=== PATIENT | male | born 1965 | race African-American/Black ===

== ENCOUNTER 2020-01-26 01:25 | Inpatient (IN) | payer OTHER ==
[2020-01-26] VITALS (96 sets, daily range): BP systolic 135–197; BP diastolic 69–142
[~2020-01-26] VITALS: Ht 175.3 cm; Wt 79.9 kg
[2020-01-26 02:20] LABS: ABSOLUTE NEUTROPHILS 7.2 thou/uL (1.4-8.2); BASOPHILS 0.9 % (0.0-2.0); EOSINOPHILS 2.1 % (0.0-3.0); HEMATOCRIT 39.1 % (42.0-52.0); HEMOGLOBIN 13.1 gm/dL (14.0-18.0); LYMPHOCYTES 14.8 % (24.0-44.0); MCH 26.7 pg (26.0-34.0); MCHC 33.4 g/dL (28.0-37.0); MONOCYTES 3.9 % (1.0-8.0); PLATELET COUNT 232 thou/uL (150-400); POLYS 78.3 % (36.0-66.0); RBC 4.89 mil/uL (4.50-6.00); RDW 15.1 % (10.5-14.5); WBC 9.2 thou/uL (4.0-11.0)
[2020-01-26 02:35] LABS: CALCIUM 8.4 mg/dL (8.5-10.1); CREATININE 1.9 mg/dL (0.7-1.3); POTASSIUM 3.8 mmol/L (3.5-5.1)
[2020-01-26 02:36] LABS: APTT 22.4 Seconds (24.5-32.8); PROTIME 10.6 Seconds (9.3-11.4)
[2020-01-26 02:41] LABS: ALBUMIN 2.7 g/dL (3.4-5.0); TOTAL BILIRUBIN 0.6 mg/dL (0.2-1.0); TOTAL PROTEIN 6.6 g/dL (6.4-8.2)
--- NOTE | 2020-01-26 03:04 | NUR ---
TALKED WITH MR KANG'S SISTER AND NIECE
--- NOTE | 2020-01-26 07:37 | EKG ---
[facility] [place] [address] ELECTROCARDIOGRAM REPORT Name: JULIO WATSON Room #: REG [facility]..#: [id number] Admission: 01/26/20 Attend Phys: Discharge: Date of : 65 Report #: [id number] THIS REPORT FOR: cc: NO FAMILY PHYSICIAN or PCP NO FAMILY PHYSICIAN or PCP Bhargav Mccormick MD [facility] ~ THIS REPORT FOR: //name// [facility] ED Test Date: 2020-01-26 Test Time: 02:22:54 Pat Name: JULIO WATSON Department: Room: Gender: M Psychologist Educational: MELODY : 1965 Requested By: Ramiro Dang Order Number: [id number] MD: Bhargav Mccormick Measurements Intervals Raymond Rate: 83 P: 76 UT: 171 QRS: 44 QRSD: 122 T: 185 QT: 419 QTc: 493 Interpretive Statements Sinus rhythm Nonspecific intraventricular conduction delay Abnrm T, consider ischemia, anterolateral lds No previous ECG available for comparison Electronically Signed On 01-26-2020 7:36:54 CDT by Bhargav Mccormick [email or web address] <ELECTRONICALLY SIGNED> By: Bhargav Mccormick MD, [facility] 01/26/20 0736 1 1 Bhargav Mccormick MD, FACC /EPI
--- NOTE | 2020-01-26 13:06 | NUR ---
Fisher Spear to see patient. pt laying in bed #244. pt having slurred speech and delay in getting words out however a&ox3. reports extreme weakness in left upper extremity however able to lift off bed. My understanding was pt was flaccid in the left upper ext while in ER yesterday. Pt able to lift bilat lower extremities without any difficulty and expressed his want to stand up. 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 I explained a few of the risk factors which he has for stroke and he verbalized understanding. I also explained the importance of rehab and how much an improvement they can make on his prognosis. pt verbalized understanding to that as well. Prem delgado left with patient as well as my contanct info. I will continue to follow pt.
[2020-01-26 13:30] LABS: URINE BILIRUBIN NEGATIVE (Negative); URINE BLOOD TRACE (Negative); URINE CLARITY CLEAR; URINE COLOR YELLOW; URINE GLUCOSE-RANDOM* 3+ (Negative); URINE KETONES TRACE (Negative); URINE LEUKOCYTES-REFLEX NEGATIVE (Negative); URINE NITRITE-REFLEX NEGATIVE (Negative); URINE PROTEIN (DIPSTICK) 2+ (Negative); URINE SPECIFIC GRAVITY 1.015 (1.005-1.035); URINE UROBILINOGEN 0.2 E.U./dl (0.2-1.0)
[2020-01-26 13:55] LABS: BACTERIA-REFLEX None Seen /HPF (None Seen); SQUAMOUS None Seen /LPF (0-3); URINE RBC 0-2 Rare /HPF (0-2); URINE WBC-REFLEX 0-5 Rare /HPF (0-5)
[2020-01-26 13:56] LABS: CASTS None Seen /LPF (None Seen); CRYSTALS None Seen /LPF (None Seen)
--- NOTE | 2020-01-26 15:43 | 2DMMODE ---
[facility] [place] [address] [address] 2 D/M-MODE ECHOCARDIOGRAM Name: JULIO WATSON Room #: 244-P ADM IN M.R.#: [id number] Admission: 01/26/20 Attend Phys: Camron Turner MD Discharge: Date of : 65 Report #: [id number] THIS REPORT FOR: cc: NO FAMILY PHYSICIAN or PCP NO FAMILY PHYSICIAN or PCP Nicholas Barker MD ~ APPROVED REPORT Study performed: 01/26/2020 14:26:41 EXAM: Comprehensive 2D, Doppler, and color-flow Echocardiogram Patient Location: ICU Room #: 244 BSA: 2.02 HR: 71 bpm BP: 149/81 mmHg Rhythm: NSR Other Information Study Quality: Good Indications CVA/TIA Hypertension/HDD Echo Enhancing Agent Indication: Rule out Shunt Agent(s) / Amount(s) Used: Agitated Saline 7 cc 2D Dimensions RVDd: 44.90 mm IVSd: 12.00 (7-11mm) LVDd: 45.61 mm PWd: 12.11 (7-11mm) Ascending Ao: 26.25 (22-36mm) LVDs: 36.80 (25-40mm) Aortic Root: 28.87 mm IVC: 20.00 mm Volumes Left Atrial Volume (Systole) Single Plane 4CH: 73.97 mL Single Plane 2CH: 77.41 mL LA ESV Index: 43.00 mL/m2 Aortic Valve [facility] [address] [place] [address] 2 D/M-MODE ECHOCARDIOGRAM Name: JULIO WATSON Room #: 244-P ADM IN .Ranjan.#: [id number] Admission: 01/26/20 Attend Phys: Camron Turner MD Discharge: Date of : 65 Report #: [id number] AoV Peak Shorty.: 1.51 m/s AO Peak Gr.: 9.15 mmHg LVOT Max P.00 mmHg LVOT Max V: 1.00 m/s Mitral Valve E/A Ratio: 2.4 MV Decel. Time: 170.87 ms MV E Max Shorty.: 1.07 m/s MV A Shorty.: 0.45 m/s MV PHT: 49.55 ms IVRT: 106.11 ms Pulmonary Valve PV Peak Shorty.: 0.88 m/s PV Peak Gr.: 3.12 mmHg Pulmonary Vein P Vein S: 0.41 m/s P Vein A: 0.16 m/s P Vein D: 0.48 m/s P Vein A Dur.: 143.0 msec P Vein S/D Ratio: 0.85 Tricuspid Valve TR Peak Shorty.: 3.30 m/s TR Peak Gr.: 43.50 mmHg PA Pressure: 54.00 mmHg Left Ventricle The left ventricle is normal size. There is normal LV segmental wall motion. Mild concentric left ventricular hypertrophy. The left ventricular systolic function is low-normal. LVEF is 50-55%. Moderate diastolic dysfunction is present (pseudonormal filling). Right Ventricle The right ventricle is normal size. The right ventricular systolic function is normal. Atria Left atrium is dilated. Injection of bubbles documented no interatrial shunt. Right atrium is dilated. Aortic Valve The aortic valve is normal in structure. No aortic regurgitation is present. There is no aortic valvular stenosis. Mitral Valve The mitral valve is normal in structure. Mild mitral regurgitation. No evidence of mitral valve stenosis. [facility] [address] [place] [address] 2 D/M-MODE ECHOCARDIOGRAM Name: JULIO WATSON Room #: 244-P [facility] IN M.R.#: [id number] Admission: 01/26/20 Attend Phys: Camron Turner MD Discharge: Date of : 65 Report #: [id number] Tricuspid Valve The tricuspid valve is normal in structure. There is mild tricuspid regurgitation. Estimated PAP 46 mmHg. Pulmonic Valve The pulmonary valve is normal in structure. There is no pulmonic valvular regurgitation. Great Vessels The aortic root is normal in size. IVC is dilated and collapses <50% with inspiration. Pericardium Trace pericardial effusion. <Conclusion> The left ventricle is normal size. Mild concentric left ventricular hypertrophy. The left ventricular systolic function is low-normal. The right ventricle is normal size. Left atrium is dilated. Injection of bubbles documented no interatrial shunt. The aortic valve is normal in structure. Mild mitral regurgitation. There is mild tricuspid regurgitation. Estimated PAP 46 mmHg. <ELECTRONICALLY SIGNED> By: Nicholas Barker MD 01/26/201541 41 41 Nicholas Barker MD /INF
--- NOTE | 2020-01-26 16:28 | NUR ---
call placed to Fely at Dr. Ramsey's office to notify him the MRI scanner is down today. therefore unable to perform MRI today.
[2020-01-26 16:57] LABS: CHOLESTEROL 189 mg/dL (<200); HDL CHOLESTEROL 68 mg/dL (>40); LDL CHOLESTEROL 106 mg/dL (<100); TC:HDL 2.8 Ratio (Not establshd); TRIGLYCERIDE 76 mg/dL (<150); VLDL 15 mg/dL (<40)
[2020-01-26 16:59] LABS: TROPONIN-I 0.96 ng/mL (<0.06)
--- NOTE | 2020-01-26 17:24 | HC ---
[facility] [place] [address] CONSULTATION Name: JULIO WATSON Room #: 244-P ADM IN Ros[place].#: [id number] Admission: 01/26/20 Attend Phys: Camron Turner MD Discharge: Date of : 65 Report #: [id number] THIS REPORT FOR: cc: NO FAMILY PHYSICIAN or PCP NO FAMILY PHYSICIAN or PCP Sky Ramsey MD ~ DATE OF SERVICE: 01/26/2020 HISTORY OF PRESENT ILLNESS: This is a 54-year-old male patient who was evaluated by me for stroke. I talked to a nurse practitioner who is admitting this patient, Dona, and subsequently I talked to Dr. Turner, the hospitalist. I took the history from the patient himself and the patient's family provided some of the history. The records from Emergency Room physician were reviewed. I also talked to Dr. Foley, the neurologist, corrosion control fitter last night. This patient had presented to Emergency Room for stroke-like symptoms. As I understand, the patient has weakness and numbness on the left side including the face. He was within the timeframe for TPA and Emergency Room physician, Dr. Dang and Dr. Foley, gave him TPA and looks like he tolerated it pretty well. The patient is also left handed and his speech was also affected. He has not shown any significant improvement so far, but he has not shown any significant deterioration either. The patient is still in the Emergency Room. He never had any stroke-like symptoms before. He does not have any heart problems. He says he does not smoke or drink any alcohol. He is a diabetic and hypertensive. REVIEW OF SYSTEMS: Positive for diabetes and hypertension. It looks like Emergency Room physician did the exclusion criteria and after that, he was given TPA. They also did a CT angiogram of the head and neck to make sure there is no indication for thrombectomy and a CT angiogram of the head and neck was normal. This morning, consult was passed on to me and I saw this patient just now and the history is summarized as above. PAST MEDICAL HISTORY: Negative for stroke, any metal in the body which would be contraindication for MRI. He does not have any heart issues either according to him. FAMILY HISTORY: Positive for stroke. SOCIAL HISTORY: He says he drinks alcohol on the weekend, but does not smoke or do any drugs. PHYSICAL EXAMINATION: Indicate he is alert. He is responsive. He can follow simple command. He does not feel his speech is anywhere close to normal, although he can follow simple commands. He is able to talk. His cranial nerve examination was attempted. He has a left facial weakness, but I cannot tell [facility] [address] [place] [address] CONSULTATION Name: JULIO WATSON Room #: 244-P ADM IN M.R.#: [id number] Admission: 01/26/20 Attend Phys: Camron Turner MD Discharge: Date of : 65 Report #: [id number] about hemianopsia. I think we need to do the exam again. He has no strength in the left upper extremity, but left lower extremity he can move. He can move against gravity and to some extent against resistance, but he is weak there also. He says that he cannot feel things on the left upper extremity. Left lower extremity, he thinks his sensation is altered. He still was able to do the position sense on the left side, but it took him longer. His right plantar is withdrawal. Left plantar is mute. Cardiac examination does not appear to be showing any fibrillation, no respiratory difficulty was noticed. His blood pressure, the last one was 170/98, respiration is 19, pulse is 90. LABORATORY DATA: Indicate normal white count, platelet count is 232. PTT is 22.4. His GFR was only 37. IMPRESSION AND PLAN: Clinically, the patient appeared to have stroke. It is probably a small vessel, subcortical stroke, but we need to see if it is in the subcortical or brainstem area or any other location. He received the TPA in Emergency Room and does not look like that has caused any detrimental effect on him. There are multiple concerns in this patient, which need to be addressed and most of them are non-neurological at the moment. They are summarized as follows: 1. His blood sugar is running very high. That needs to be controlled to prevent the anaerobic metabolism and the recommendation is controlling the blood sugar tightly. 2. Blood pressure also needs to be monitored and controlled tightly because of the TPA. It should be kept less than 180 systolic by the use of either labetalol or Cardene depending upon art studio teacher's choice. We should not let the blood pressure drop too low, but something like 160 systolic will be reasonable. That should be the goal with some fluctuation. 3. This patient's GFR was only 37. He did get contrast in the Emergency Room for the CT angiogram. That needs to be addressed and monitored either by art studio teacher or by Nephrology. If fluids are given, his blood pressure can even go higher and he may need some more medications to control the blood pressure. 3. He does have vascular risk factor, but he is still young. He will need workup to determine some other etiology for the patient's stroke. We will go ahead and order that starting with an echocardiogram, but subsequently doing some more testing which I will order once the patient stabilizes. 4. This patient will need extensive PT, OT and speech therapy because his dominant side is affected. 5. His troponin is high, although coming down. Again, I will defer to hospitalist if anything further needs to be done in that regard. Neurologically, I will look at the MRI once it is done. I will follow up again later on today after the MRI. There is a post-TPA order should be followed, [facility] [address] [place] [address] CONSULTATION Name: JULIO WATSON Room #: 244-P ADM IN .R.#: [id number] Admission: 01/26/20 Attend Phys: Camron Turner MD Discharge: Date of : 65 Report #: [id number] especially his diabetes and hypertension need to be controlled with the parameter as summarized above. I discussed that with the family as well as Dr. Turner, the hospitalist, as well as a nurse practitioner, Dona, from hospitalist. Thank you very much for this referral. <ELECTRONICALLY SIGNED> By: Sky Ramsey MD 01/26/20 1724 [id number] [id number] Sky Ramsey MD /nt
--- NOTE | 2020-01-26 18:28 | NUR ---
>>>1030 PT ARRIVED ON FLOOR WITH ED NURSE. IS ALERT AND ORIENTED. DENIES PAIN. SLURRED SPEECH NOTED ON COMMUNICATION. ASSESSMENTS DONE DOCUMENTED. FAMILY NOTIFIED ABOUT PT TRANSFER TO ROOM. ON CONTINUOS CARDINE DRIP FOR BP MAINTENANCE. BLOOD SUGAR AT 327, INSULIN ADMINISTERED DOCUMENTED. WILL CONTINUE TO MONITOR. >>>1300 SPEECH THERAPY PRESENT, SWALLOW TEST DONE, PT FAILED. STARTED ON MECHANICAL SOFT DIET WITH THIN LIQUIDS. WILL CONTINUE TO MONITOR. >>>1715 DR LAVELLE SAVAGE ON PT. ORDER TO TITRATE CARDENE DRIP OFF AND KEEP BP BETWEEN 150-180. WILL CONTINUE TO MONITOR.
[2020-01-27] VITALS (45 sets, daily range): BP systolic 124–183; BP diastolic 59–115
--- NOTE | 2020-01-27 04:51 | NUR ---
ASSUMED CARE OF PATIENT AT 1900. VSS, AFEBRILE. NIHSS DONE Q4 PER CHARTING. MAKING IMPROVEMENTS WITH LEFT SIDE, SPEECH STILL SLURRED AT TIMES. HEADACHE AT 0200. RELIEVED WITH TYLENOL. BP WITHIN PARAMETERS SET BY NEUROLOGY. PROGRESSING TOWARDS POC.
[2020-01-27 05:54] LABS: ABSOLUTE NEUTROPHILS 6.9 thou/uL (1.4-8.2); BASOPHILS 0.3 % (0.0-2.0); EOSINOPHILS 2.1 % (0.0-3.0); HEMATOCRIT 39.4 % (42.0-52.0); HEMOGLOBIN 13.1 gm/dL (14.0-18.0); LYMPHOCYTES 18.2 % (24.0-44.0); MCH 26.6 pg (26.0-34.0); MCHC 33.3 g/dL (28.0-37.0); MONOCYTES 5.6 % (1.0-8.0); PLATELET COUNT 233 thou/uL (150-400); POLYS 73.8 % (36.0-66.0); RBC 4.92 mil/uL (4.50-6.00); RDW 15.2 % (10.5-14.5); WBC 9.4 thou/uL (4.0-11.0)
[2020-01-27 06:06] LABS: GLYCOHEMOGLOBIN (HGB A1C) 13.4 % (4.8-5.6)
[2020-01-27 06:08] LABS: CALCIUM 8.3 mg/dL (8.5-10.1); MAGNESIUM 1.5 mg/dL (1.8-2.4); POTASSIUM 3.4 mmol/L (3.5-5.1)
--- NOTE | 2020-01-27 09:30 | NUR ---
cm returned call to sister louie rivera [phone], she stated she was visiting [place] and wanted get him help with social sec disability depending on his needs of care. visited with costa and sister on phone call. they reported he lives in house 10 steps to enter, 13 to basement. he independent prior to hospital. he helped his roommate care for her self and medication. drive vehicle. 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 possible can stay with me depending on what needs he will have from this. pcp at [facility] with rashaun sharp. , have someone call [place]a but do not leave message or can call me about disability and leave a message per costa and louie. referral sent to med assist.
[2020-01-27 16:59] LABS: MAGNESIUM 1.7 mg/dL (1.8-2.4); POTASSIUM 3.9 mmol/L (3.5-5.1)
[2020-01-27 18:41] LABS: APTT 25.4 Seconds (24.5-32.8); INR 1.1; PROTIME 11.2 Seconds (9.3-11.4)
[2020-01-28] VITALS (91 sets, daily range): BP systolic 116–165; BP diastolic 64–94
--- NOTE | 2020-01-28 02:57 | NUR ---
PT AWAKE, ALERT AND ORIENTED. DENIES HEADACHE/PAIN.MOVING AND LIFTING BLE AND RIGHT HAND WITH NO DRIFT.LEFT HAND WEAK, PT ABLE TO MAKE SLIGHT MOVEMENT OF THE WRIST.EATING AND DRINKING THIN LIQUIDS WITH NO COUGHING NOTED BUT SOME ISSUES WITH COORDINATION AND REQUIRES ASSISTNCE WITH SETUP.TITRATING CARDENE GTT SLOWLY TO KEEP SBP WITHIN SET PARAMETERS BY NEURO. DR. NAJERA HERE AT 0200 TO SEE PT. UPDATED ON PT CONDITION. NEW ORDERS TO CONSULT NEUROSURGEON AND REPEAT CT HEAD AT 0800.
[2020-01-28 09:51] LABS: HEMATOCRIT 42.4 % (42.0-52.0); HEMOGLOBIN 13.9 gm/dL (14.0-18.0); MCH 26.1 pg (26.0-34.0); MCHC 32.7 g/dL (28.0-37.0); MCV 79.9 fL (80.0-100.0); RBC 5.3 mil/uL (4.50-6.00); RDW 15.5 % (10.5-14.5)
[2020-01-28 10:06] LABS: CALCIUM 8.6 mg/dL (8.5-10.1); CREATININE 1.3 mg/dL (0.7-1.3); MAGNESIUM 1.6 mg/dL (1.8-2.4); POTASSIUM 3.4 mmol/L (3.5-5.1)
--- NOTE | 2020-01-28 11:55 | NUR ---
cm notified by cm team that hospitalist is needing to speak with neurosurgery rt pt having 2nd bleed. spoke with [facility], faxed over face sheet, costa is pat. have radiology cloud over imagining to [facility]. spoke with [facility] transfer nurse, will reach out to carmen to discuss costa. will cont following as needed for dc needs.
[2020-01-29] VITALS (69 sets, daily range): BP systolic 112–149; BP diastolic 56–87
[2020-01-29 02:26] LABS: HEMOGLOBIN 12.8 gm/dL (14.0-18.0); MCH 26.3 pg (26.0-34.0); MCHC 32.9 g/dL (28.0-37.0); RBC 4.87 mil/uL (4.50-6.00); RDW 15.2 % (10.5-14.5); WBC 9.9 thou/uL (4.0-11.0)
[2020-01-29 02:35] LABS: CALCIUM 8.4 mg/dL (8.5-10.1); CREATININE 1.3 mg/dL (0.7-1.3); MAGNESIUM 1.7 mg/dL (1.8-2.4); POTASSIUM 3.5 mmol/L (3.5-5.1)
--- NOTE | 2020-01-29 03:50 | NUR ---
This RN to bedside at 1900. Q4 NIH tests and Q2 neuro checks. Patient consistently scoring a 4 on this NIH scale. Partial on facial palsy, partial on sensory and motor left arm scoring drift. Patient is alart and oriented, appropriate mood and affect. Patient remains on a cardene gtt and is succesfully voiding and drinking fluids adequately. Patient on room air. Patient progressing well towards goals.
--- NOTE | 2020-01-29 06:15 | NUR ---
This RN discussed patient status with Dr. Worley. Per Dr. Worley, blood pressure needs to be 130's-140's systolic. Patient remains on cardene gtt. Physician to review blood pressure meds and possibly change medications.
--- NOTE | 2020-01-29 08:14 | HC ---
[facility] [place] [address] CONSULTATION Name: JULIO KANG Room #: 244-P ADM IN M.R.#: [id number] Admission: 01/26/20 Attend Phys: Camron Turner MD Discharge: Date of : 65 Report #: [id number] THIS REPORT FOR: cc: NO FAMILY PHYSICIAN or PCP NO FAMILY PHYSICIAN or PCP Ray Pineda MD ~ REQUESTING PHYSICIAN: Dr. Camron Turner. REASON FOR CONSULTATION: Conversion of CVA to hemorrhagic CVA, at this time asymptomatic. HISTORY OF PRESENT ILLNESS: The patient initially had noted some trouble speaking and left-sided weakness on the evening of, I believe would be 01/25/2020 and presented to the ER at [facility] on the skiver uppers or linings of 01/26/2020. His initial blood pressure by EMS was 200/130 and a blood sugar of 466. He initially had symptoms worsened. He had a CAT scan, if I understand, that did not show specific abnormalities. He received TPA approximately at 0244 on 01/26/2020. His symptoms have not worsened per the ICU nurse and per the patient. Repeat CT head at 1530 on 01/27/2020 and also an MRI on the same date showed evolution of right MCA artery consistent with hemorrhage. Note, the patient's fibrinogen about that time was 298. Platelets have been normal and coags have also been appropriate with an APTT also at 25.4. The patient has no prior history of stroke. He does have a history of high blood pressure and hypertension. He also has some obesity. At this time, the patient denies fevers, chills, nausea, vomiting. Does seem to be aware of food pocketing in his left cheek. Does have definite left-sided weakness in his arm and his leg, though he can lift his hand and also wiggle his feet. Mentally, he thinks by his communication that he can understand clearly. This seems to be the case, he seems to be a reliable historian at this time. As mentioned above, the patient has a history of hypertension, obesity and diabetes. I believe, he had been followed at [facility]. He does not have insurance. SOCIAL HISTORY: Nonsmoker, nondrinker, no street drugs. 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 His hobbies including enjoying working on his truck. He has a [employer]00. He does most work himself. 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 He has by his description supportive girlfriend who has several dogs that live with him. FAMILY HISTORY: The patient denies any knowledge of any unusual bleeding or strokes. Does sound like he had perhaps his father who may have had a stroke at age 60 and also had high blood pressure and diabetes, per his description. No [facility] [address] [place] [address] CONSULTATION Name: JULIO KANG Room #: 244-P ADM IN M.R.#: [id number] Admission: 01/26/20 Attend Phys: Camron Turner MD Discharge: Date of : 65 Report #: [id number]. LABORATORY DATA: At this time notable for BUN of 14; creatinine initially 1.9, currently 1. Glucose had been 444 in initiation, most recently 152. AST slightly elevated at 55, total bilirubin was 0.6. ALT was elevated at 78. Albumin slightly low at 2.7. Troponin originally elevated at 0.91. Has been seen by Cardiology. INR on admission 1.0 and yesterday 1.1. APTT has been in normal range at 22.4, yesterday 25.4. Fibrinogen has been 298.9. White count has been 9.4, hemoglobin 13.1 with an MCV of 80.0, RDW 15.2, platelets of 233. Differential nonacute. Hemoglobin A1c was 13.4. Vitamin B12 was 805. TSH slightly elevated at 4.115. Vitamin D currently pending. UA had some protein and glucose, ketones, trace blood. No significant protein. RADIOLOGIC STUDIES: Imaging mention here had included the initial CT head that showed no CT evidence of acute intracranial abnormality. Note that that was performed at 5:57 on 01/26/2020. Ultrasound of lower extremity because of pain and swelling did not show a clot. CT with stroke protocol perfusion performed on the did show some enlarged lymph nodes in superior mediastinum with nonemergent followup CT scan chest suggested. Normal CT angiography of the neck, normal CT angiography of the head, no evidence of intracranial hemorrhage. MRI of the head on 01/27/2020 at 1500 showed acute infarct to the right posterior and lateral frontal lobe in the MCA distribution with interval development of hemorrhage within the infarct. Some mass effect without significant midline shift. Most recent CT head from 01/27/2020 at 2125 described as unchanged right MCA territory infarction compared to earlier this afternoon, currently measuring 4.7 x 3.5 cm with approximately 2 mm of right to left midline shift. PHYSICAL EXAMINATION: VITAL SIGNS: The patient's height is 5 feet 9, 175.3 cm. Weight is 182 pounds on one, measured 170.8 on another, this would either be 82.6 kilograms or 77.5 kilograms. Recent blood pressure is 147/71 with an O2 sat of 97%, respirations 17, temperature is afebrile at 98.8 that is an oral source. MOOD: The patient is alert and pleasant and energetic in his speech. NEUROLOGIC: Speech a little bit apraxic with difficulty understanding the patient and by his self description, some pocketing of food and liquids in his left cheek. Significant difficulty and deficits in moving his left arm and left leg. LUNGS: Clear to auscultation without stridor, rales, rhonchi, or wheezes, symmetric and unlabored. HEART: Regular rate. No definite murmur. LYMPHATICS: Lymph nodes, not enlarged in the supraclavicular, cervical, axillary region. ABDOMEN: Slightly obese. No organomegaly. Nontender. [facility] [address] [place] [address] CONSULTATION Name: JULIO KANG Room #: 244-P ADM IN M.R.#: [id number] Admission: 01/26/20 Attend Phys: Camron Turner MD Discharge: Date of : 65 Report #: [id number] EXTREMITIES: Maybe very mild trace edema. No unusual ecchymosis or bruising noted. ASSESSMENT AND PLAN: 1. Hemorrhagic conversion of cerebrovascular accident after TPA. The patient's coags and fibrinogen and platelets were normal. The patient is asymptomatic with regard to hemorrhagic conversion. Defer Neurology evaluation to others. At this time, I see no role for additional hematologic intervention. Would be very cautious/avoid nonsteroidals or antiplatelet agents. 2. Hypertension, defer management to others. 3. Diabetes type 2, defer management to others. 4. Obesity, defer management to others. 5. Left-sided weakness. Rehab services seeing the patient. <ELECTRONICALLY SIGNED> By: Ray Pineda MD 01/29/20 0814 1024 Ray Pineda MD /nt
--- NOTE | 2020-01-29 18:43 | NUR ---
PATIENT UP TO CHAIR TODAY WITH THERARPY. PATIENT GOOD APPETITE. CARDENE GTT CONTINUES THROUGHOUT THE DAY. NEW SBP PARAMETERS OF 130-150. BM TODAY. PATIENT PROGRESSING TOWARDS DISCHARGE GOALS. PIVX2.
[2020-01-30] VITALS (69 sets, daily range): BP systolic 122–155; BP diastolic 67–91
[2020-01-30 05:47] LABS: HEMATOCRIT 37.7 % (42.0-52.0); HEMOGLOBIN 12.6 gm/dL (14.0-18.0); MCH 26.8 pg (26.0-34.0); MCHC 33.5 g/dL (28.0-37.0); MCV 79.9 fL (80.0-100.0); RBC 4.71 mil/uL (4.50-6.00); RDW 15.5 % (10.5-14.5); WBC 10.3 thou/uL (4.0-11.0)
[2020-01-30 05:50] LABS: CALCIUM 8.5 mg/dL (8.5-10.1); CREATININE 1.2 mg/dL (0.7-1.3); POTASSIUM 3.7 mmol/L (3.5-5.1)
--- NOTE | 2020-01-30 07:00 | NUR ---
ASSUMMED CARE OF PATIENT AT 0700 FROM JOHANNA STOUT. BP WITHIN PARAMATERS. REMAINS OFF CARDENE.
--- NOTE | 2020-01-30 10:00 | NUR ---
ROXANEENE RESTARTED AT 0850 FOR SYSTOLIC BP IN THE 150'S. PATIENT ALSO C/O HEADACHE THAT WAS RELIEVED WHEN BP WAS IN THE 130'S TO 140'S. DR LANGFORD IN AND AWARE OF PATIENT STATUS.
--- NOTE | 2020-01-30 12:33 | NUR ---
chart review, he has been accepted to [facility] acute rehab when medical stable for dc. cm left message for inga. when dc to acute rehab, bedside nurse call [phone] for report. possible dc to [facility] today, or over weekend.
--- NOTE | 2020-01-30 15:19 | NUR ---
PATIENT REMAINS ON CARDENE DRIP TO KEEP SYSTOLIC BP AT 130 MMHG.
--- NOTE | 2020-01-30 15:31 | NUR ---
PATIENT HAS BEEN ACCEPTED FOR 5N/ACUTE REHAB STAY. PATIENT CAN ADMIT WHEN MEDICALLY STABLE. ANTICIPATE ADMISSION EITHER SUNDAY OR SUNDAY (01/31 OR 02/02/20). WEEKEND SUPERVISOR CHASSIS ASSEMBLY DIRECTOR EXECUTIVE COMMUNICATIONS IS AMIRAH AND SHE CAN BE REACHED AT [phone]. IF ADMISSION IS ON SUNDAY, PLEASE CALL AMIRAH TO INITIATE REHAB ADMISSION PROCESS. THANK YOU FOR THIS REFERRAL.
[2020-01-31] VITALS (58 sets, daily range): BP systolic 100–158; BP diastolic 61–102
[2020-01-31 04:26] LABS: HEMATOCRIT 38.3 % (42.0-52.0); HEMOGLOBIN 12.7 gm/dL (14.0-18.0); MCH 26.5 pg (26.0-34.0); MCHC 33.2 g/dL (28.0-37.0); MCV 79.8 fL (80.0-100.0); RBC 4.8 mil/uL (4.50-6.00); RDW 15.5 % (10.5-14.5)
[2020-01-31 04:45] LABS: CALCIUM 8.7 mg/dL (8.5-10.1); CREATININE 1.3 mg/dL (0.7-1.3); MAGNESIUM 1.8 mg/dL (1.8-2.4); POTASSIUM 3.5 mmol/L (3.5-5.1)
[2020-01-31 08:50] LABS: CALCIUM 8.1 mg/dL (8.5-10.1); CREATININE 1.2 mg/dL (0.7-1.3); MAGNESIUM 1.9 mg/dL (1.8-2.4)
--- NOTE | 2020-01-31 16:18 | NUR ---
PT ON Q4 NIH SCALE, SCORE NO HIGHER THAN 4. NO ACUTE CHANGES IN NIH STATUS. CARDENE TITRATED OFF. BLOOD PRESSURE SYSTOLIC BETWEEN 130-150. PT WORKED WITH PT/OT TODAY. TRANSFER TO CCU THIS AFTERNOON. PT PROGRESSING TOWARDS POC. PT WAS EDUCATED AND UPDATED ON POC. AFEBRILE, ADEQUATE UOP, NO BM.
--- NOTE | 2020-01-31 18:54 | NUR ---
PT TRANSFERED FROM ICU IN STABLE CONDITION. NO CONCERNS AT THIS TIME.
[2020-02-01 00:42] VITALS: BP 138/87
[2020-02-01 03:44] VITALS: BP 153/72
[2020-02-01 04:36] LABS: HEMATOCRIT 39.4 % (42.0-52.0); HEMOGLOBIN 13.1 gm/dL (14.0-18.0); MCH 26.4 pg (26.0-34.0); MCHC 33.2 g/dL (28.0-37.0); MCV 79.7 fL (80.0-100.0); RBC 4.95 mil/uL (4.50-6.00); RDW 15.2 % (10.5-14.5); WBC 10.1 thou/uL (4.0-11.0)
--- NOTE | 2020-02-01 05:03 | NUR ---
PT TRANSFER FROM ICU YESTERDAY AT SHIFT CHANGE. S/P CVA. AO X4. DENIES CHEST PAIN, NAUSEA OR VOMITING. VITALS STABLE. RIGHT ARM PAIN REPORTED DUE TO IVs. STROKE SCORE OF 4. NO NEW CHANGES NOTED. ASSIST X 1 TO THE BATHROOM OTHERWISE VOIDING PER URINAL. WILL CONTINUE TO MONITOR.
[2020-02-01 05:09] LABS: CALCIUM 8.8 mg/dL (8.5-10.1); CREATININE 1.2 mg/dL (0.7-1.3); MAGNESIUM 1.9 mg/dL (1.8-2.4); POTASSIUM 3.7 mmol/L (3.5-5.1)
[2020-02-01 07:38] VITALS: BP 143/89
[2020-02-01] MEDS ORDERED: LIPITOR40 MG PO (10:11)
[2020-02-01] MEDS ORDERED: NORVASC10 MG PO (10:12)
[2020-02-01] MEDS ORDERED: METOPROLOL TART25 MG PO (10:12)
[2020-02-01] MEDS ORDERED: LISINOPRIL40 MG PO (10:13)
[2020-02-01] MEDS ORDERED: LANTUS SUBQ (10:22)
[2020-02-01 11:28] VITALS: BP 147/86
--- NOTE | 2020-02-01 15:31 | NUR ---
ASSESSMENT CHARTED. PT ALERT AND ORIENTED. VSS. RECEIVED PRN PAIN MED WITH PARTIAL RELIEF. NIH SCORE A 4. ORDERS GIVEN TO DISCHARGE PT TO REHAB 5N. REPORT CALLED IN TO THE NURSE.
[2020-02-03 22:06] LABS: SYPHILIS AB Non Reactive (Non Reactive)
== END 2020-02-01 15:47 | DRG 61 ==
LOC: ER 01:25 → ICU 10:18 → 2N 01-31 16:55
PROVIDERS: Emergency Medicine; Internal Medicine; Internal Medicine Hematology & Oncology; Internal Medicine Pulmonary Disease; Nurse Practitioner; Psychiatry & Neurology Neuromuscular Medicine; ADMIT Internal Medicine; ATTEND Internal Medicine
DX: I63.89 Other cerebral infarction (principal); I21.4 Non-ST elevation (NSTEMI) myocardial infarction; I61.8 Other nontraumatic intracerebral hemorrhage; N17.9 Acute kidney failure, unspecified; I16.1 Hypertensive emergency; G81.92 Hemiplegia, unspecified affecting left dominant side; I16.0 Hypertensive urgency; I08.1 Rheumatic disorders of both mitral and tricuspid valves; E11.22 Type 2 diabetes mellitus with diabetic chronic kidney disease; N18.9 Chronic kidney disease, unspecified; E66.01 Morbid (severe) obesity due to excess calories; E78.5 Hyperlipidemia, unspecified; T45.615A Adverse effect of thrombolytic drugs, initial encounter; Y92.89 Other specified places as the place of occurrence of the external cause; Z91.14 Patient's other noncompliance with medication regimen; Z68.26 Body mass index [BMI] 26.0-26.9, adult; Z92.82 Status post administration of tPA (rtPA) in a different facility within the last 24 hours prior to admission to current facility; Z23 Encounter for immunization
CPT/HCPCS: 10078; 10797

== ENCOUNTER 2020-02-01 12:53 | Inpatient (IN) | payer MEDICAID ==
[~2020-02-01] VITALS: Ht 175.3 cm; Wt 85.7 kg
[~2020-02-01 12:53] MED LIST: LANTUS SUBQ; LIPITOR40 MG PO; LISINOPRIL40 MG PO; METOPROLOL TART25 MG PO; NORVASC10 MG PO
[2020-02-01 15:15] VITALS: BP 147/91
--- NOTE | 2020-02-01 17:59 | NUR ---
ASSUMED CARE OF PT AT 1515 WHEN PT BROUGHT TO UNIT BY NURSING STAFF. RECEIVED REPORT FROM GIRISH HOOKS PRIOR TO TRANSFER TO UNIT. ADMISSION HISTORY/ASSESSMENT, VITAL SIGNS, WEIGHT, AND EDUCATION COMPLETED. PT SIGNED CONSENTS. CONSULTS CALLED. FALL PRECAUTIONS IN PLACE AND NURSING WILL CONTINUE TO MONITOR.
[2020-02-01 20:06] VITALS: BP 165/98
[2020-02-01 23:00] VITALS: BP 145/93
--- NOTE | 2020-02-02 00:05 | NUR ---
PT AOX4. PT ASSESSED WITH BP OF 165/98. SEARCH MARKETING SPECIALIST CIRCULAR TANK COOPER NOTIFIED, ADVISED TO RECHECK AFTER 2100 MEDICATIONS GIVEN. PT REPORTS 7/10 PAIN IN RIGHT FOREARM AND RIGHT WRIST, REQUESTING APAP. ONCALL CIRCULAR TANK COOPER NOTIFIED, EMAR UPDATED. PT RECEIVING PRN PO NORCO Q6HR. PT DENIES SOB ON ROOM AIR. PT TOLERATING PO INTAKE OF THIN FLUIDS WITHOUT ISSUE, VOIDING PER URINAL. PT REASSESSED AT 2204 WITH BP OF 164/99, RECHECKED AT 2205 WITH BP OF 155/101. ONCALL CIRCULAR TANK COOPER NOTIFIED, EMAR UPDATED. PT GIVEN CLONIDINE ONETIME. PT REASSESSED AT 2300 WITH BP OF 145/93. ONCALL CIRCULAR TANK COOPER NOTIFIED, NO NEW ORDERS AT THIS TIME. PT RESTING IN BED THROUGHOUT SHIFT, FREQUENT REPOSITIONING ENCOURAGED. PT NOTED TO SLIGHTLY SHIFT INDEPENDENTLY WHILE IN BED, REFUSING REPOSITIONING ASSISTANCE DUE TO REPORTS OF COMFORT. ENCOURAGED PT TO NOTIFY STAFF FOR ALL NEEDS. CALL LIGHT WITHIN REACH, BED ALARM ON, BED IN LOWEST POSITION, FREQUENT REPOSITIONING WILL CONTINUE.
[2020-02-02 04:47] VITALS: BP 135/79
[2020-02-02 06:08] LABS: HEMATOCRIT 38.1 % (42.0-52.0); HEMOGLOBIN 12.5 gm/dL (14.0-18.0); MCH 26.4 pg (26.0-34.0); MCHC 32.8 g/dL (28.0-37.0); MCV 80.6 fL (80.0-100.0); RBC 4.72 mil/uL (4.50-6.00); RDW 15.2 % (10.5-14.5); WBC 7.5 thou/uL (4.0-11.0)
[2020-02-02 06:26] LABS: CALCIUM 8.4 mg/dL (8.5-10.1); CREATININE 1.2 mg/dL (0.7-1.3); POTASSIUM 3.9 mmol/L (3.5-5.1)
[2020-02-02 07:00] VITALS: BP 152/93; BP 153/75
--- NOTE | 2020-02-02 09:22 | NUR ---
ASSUMED CARE AT 0700. PATIENT IS ALERT AND ORIENTED X4. PATIENT HAS LEFT FACIAL DROOP, LEFT SIDED WEAKNESS. PATIENT IS UP WITH ASSIST OF 1 STAFF AND GAIT BELT . LUNGS ARE CLEAR AND DEMINISHED. PATIENT RECIEVED FLU SHOT TODAY. PATIENT HAS S.T. TO HIS RIGHT F.A. UP IN BED FOR BREAKFAST. FALL AND SAFETY PROTOCOLS IN PLACE. DENIES PAIN, EVALS IN PROGRESS BY THERAPIES. WILL CONTINUE TO MONITER.
[2020-02-02 12:19] VITALS: BP 138/87
--- NOTE | 2020-02-02 13:29 | NUR ---
Nutrition: pt admitted to rehab unit S/P acute right CVA. RD received consult due to pt being on modified diet: mechanically altered chopped, 2200 carb controlled. Speech therapy following. Pt eating 75-100% of meals and voices no complaints. Stable weights. Obtained food preferences. No intervention planned. Low nutrition risk.
--- NOTE | 2020-02-02 15:08 | NUR ---
chart review. cm visit with costa at bedside, cm cont to wear face mask and shield during visit. he reported lives in house and has roommate. he help her. he was manage own medication and helping his roommate with her medication. 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 goes to [facility] for his pcp dr keyana sharp. 10 steps to enter and 13 steps to basement. was independent. has sister in area that can help sometimes. will cont following as needed for dc needs.
--- NOTE | 2020-02-02 19:26 | NUR ---
PATIENT PLEASANT AND POSITIVE - WORKED WITH OT - AMBULATES WITH WALKER - LEFT SIDED WEAKNESS - LEG SHUFFLES - REGAINING STRENGTH IN LEFT ARM AND HAND. NEEDS ENCOURAGEMENT TO HOLD WALKER WITH BOTH HANDS. GOOD APPETITE. USES URINAL TO VOID. MAKES NEEDS KNOWN. STATES NO PAIN WHEN ASSESSED. TAKES MEDICATIONS WITH APPLESAUCE. HAD BOWEL MOVEMENT YESTERDAY. HEART STRONG AND STEADY AND LUNGS CLEAR ON AUSCULTATION. PEDIAL AND RADIAL PULSES STRON 0- WEAK IN LEFT RADIAL.
[2020-02-02 20:00] VITALS: BP 143/93
--- NOTE | 2020-02-02 23:32 | NUR ---
PATIENT HAS BEEN IN BED ALL EVENING AND WATCHING TV. HIS LEFT ARM IS WEAK WITH HEMIPARESIS. ARM IS ELEVATED ON FOLDED BLANKET. LIMB ALERT WRIST BAND IN PLACE. PATIENT HAS DENIED PAIN TONIGHT. HE HAS 2+ EDEMA IN LEFT LOWER LEG AND 1+ EDEMA IN RIGHT LOWER LEG. BLE'S SLIGHTLY ELEVATED. PATIENT USES URINAL AT BEDSIDE TO VOID. PATIENT HAD BANANA FOR HS SNACK. LANTUS 8U GIVEN SQ WITH GLUCOSE AT 199. PATIENT HAS BEEN PLEASANT AND COOPERATIVE. HE IS WORKING HIS LEFT ARM AND EXERCISING IT HE CAN. HE AMBULATES WITH ASSIST X 1 WITH WALKER AND GAIT BELT TO BATHROOM. HIS LAST BM WAS 02/01/20. PATIENT HAS ORDER FOR BP Q 4 HOURS. BED IN LOW POSITION AND BED ALARM IS ON. CONTINUING TO MONITOR.
--- NOTE | 2020-02-03 07:53 | HC ---
[facility] [place] [address] [place] [address] CONSULTATION Name: JULIO KANG Room #: 506-1 ADM IN M.R.#: [id number] Admission: 02/01/20 Attend Phys: Mino Hernandez MD Discharge: Date of : 65 Report #: [id number] THIS REPORT FOR: cc: NO FAMILY PHYSICIAN or PCP NO FAMILY PHYSICIAN or PCP Keshawn Chappell MD ~ DATE OF SERVICE: 02/02/2020 ENDOCRINE CONSULTATION NOTE CONSULTING PHYSICIAN: Dr. Hernandez. REASON FOR CONSULTATION: Uncontrolled type 2 diabetes mellitus. HISTORY OF PRESENT ILLNESS: This is a 54-year-old male patient whose medical background is significant for multiple issues including type 2 diabetes mellitus, hypertension and hyperlipidemia. The patient had recent issues with hemorrhagic conversion of CVA following TPA. He has suffered significant left-sided weakness and is currently at the rehab unit for rehabilitative efforts. The patient's background is noted for type 2 diabetes mellitus, which he believes he has had for about 5 years. He indicates that he was treated with metformin monotherapy, but describes significant difficulties pertaining to diet adherence and physical activity due to his inconsistent job hours requirements and difficulty of accessing the kind of food that he would like to have. He notes that his blood glucose values have been consistently over 200 mg/dL. He is not aware of issues pertaining to diabetic retinopathy, nephropathy or neuropathy. He is not aware of a prior history of CVA other than the recent event and no CAD. Also, he is hypertensive and hyperlipidemic. REVIEW OF SYSTEMS: CONSTITUTIONAL: Fatigue, tiredness, but not fever or chills or body weight changes. HEENT: Negative for sore throat, sinus pain. PULMONARY: Negative for shortness of breath, cough or hemoptysis. CARDIAC: Negative for chest pain, palpitations, syncope or presyncope. GASTROINTESTINAL: Negative for abdominal pain, nausea, vomiting or changes in bowel frequency. NEUROLOGY: Noted for left-sided weakness and numbness, difficulty ambulating, but no loss of consciousness or severe, recurrent dizziness. Otherwise, his review of systems is noncontributory other than those mentioned in HPI. [facility] [address] [place] [address] CONSULTATION Name: JULIO KANG Room #: 506-1 [facility] IN M.R.#: [id number] Admission: 02/01/20 Attend Phys: Mino Hernandez MD Discharge: Date of : 65 Report #: [id number] PAST MEDICAL HISTORY: 1. Type 2 diabetes mellitus. 2. Hypertension. 3. Hyperlipidemia. 4. Hemorrhagic stroke. CURRENT MEDICATIONS: Include amlodipine 10 mg daily, lisinopril 40 mg daily, clonidine 0.1 mg one time daily, atorvastatin 40 mg at bedtime, hydrocodone/acetaminophen 1 tab q. 6 hours p.r.n., Lantus insulin 20 units at bedtime, metoprolol 25 mg b.i.d., Colace 100 mg b.i.d. ALLERGIES: No known drug allergies. FAMILY HISTORY: Noncontributory. SOCIAL HISTORY: The patient is not , has no children. 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 Denies use of tobacco, alcohol or illicit drugs. PHYSICAL EXAMINATION: GENERAL: Pleasant -British male patient who is not in apparent pain or distress. VITAL SIGNS: Blood pressure is 153/93 mmHg, heart rate is 72 beats per minute, respirations 16 per minute, temperature 36.7 degrees Celsius. CONSTITUTIONAL: He is sitting upright in bed, appears comfortable, not in apparent distress. HEENT: Anicteric sclerae. Intact extraocular motions. NECK: Supple, without JVD, carotid bruits or lymphadenopathy, no thyromegaly. CHEST: Noted for good air entry bilaterally with scattered rales, rhonchi, but no wheeze or crackles. HEART: Regular rate and rhythm without murmurs or gallops. ABDOMEN: Soft, lax. No guarding. Active bowel sounds. EXTREMITIES: Lower extremity exam is noted for trace ankle edema. No skin breaks or ulcerations. Pedal pulses are faint. NEUROLOGICALLY: Awake, alert and oriented to time, place and person. The remainder of his examination is noted for dense left-sided weakness involving both his upper and lower extremities. Otherwise, he is cooperative. PSYCHIATRIC: Pleasant, interactive. Normal mood and affect. LABORATORY RESULTS: The patient's blood glucose values were reviewed at length and they are noted for recurrent episodes of fasting hypoglycemia, although mostly mild to moderate with daytime hyperglycemia, but under 220 mg/dL for the most part. Sodium 138, potassium 3.9, chloride 105, CO2 of 24, anion gap 9, BUN 13, creatinine 1.2, glucose 81. AST 55, total bilirubin 0.6, calcium 8.4, [address] [address] CONSULTATION Name: JULIO KANG Room #: 506-1 ADM IN M.R.#: [id number] Admission: 02/01/20 Attend Phys: Mino Hernandez MD Discharge: Date of : 65 Report #: [id number] magnesium 1.9, alkaline phosphatase 99, ALT 78, total protein 6.6, albumin 2.7, EGFR 76. Troponin 0.96. Total cholesterol 189, triglycerides 76, HDL 68, LDL 106. INR 1.1. White blood count 7.5, hemoglobin 12.5, hematocrit 38.1, platelets 202. TSH 4.115, hemoglobin A1c 13.4%. Vitamin D 50.3. ASSESSMENT AND PLAN: 1. Type 2 diabetes mellitus. Severely uncontrolled baseline as per his reports, his blood glucose values as well as his recorded hemoglobin A1c of 13.4%. The patient and I had a lengthy discussion about the importance of achieving and maintaining adequate glycemic control to avoid diabetic complications, especially in the setting of an acute CVA. The patient has been maintained on Lantus monotherapy at 20 units at bedtime with an outlook that is noted for excessive fasting glucose control to the point of [id number] hypoglycemia, but with frequent blood glucose readings over 180 mg/dL postprandial. That said, I will resume metformin therapy at a dose of 500 mg b.i.d. while dropping Lantus to 10 units at bedtime. Also, I will start Tradjenta 5 mg daily. Blood glucose will be monitored a.c. and at bedtime and further therapeutic adjustments will be made accordingly. It would be ideal if we were able to get the patient out of here and on an insulin based regimen, especially given his relatively low therapeutic needs. 2. Hypertension. The patient's level of blood pressure control has been marginal. Further therapeutic changes of his antihypertensive regimen are as per the primary hospital team. 3. Hyperlipidemia. The patient is on atorvastatin therapy and tolerates it well, he is to continue with the same. I certainly appreciate this consultation by Dr. Hernandez. <ELECTRONICALLY SIGNED> By: Keshawn Chappell MD 02/03/20 [id number] Keshawn Chappell MD /nt
[2020-02-03 08:00] VITALS: BP 143/94
--- NOTE | 2020-02-03 08:00 | NUR ---
ASSUMED CARE AT 0700. PATIENT IS ALERT AND ORIENTEDX4. PATIENT JOHNSON'S, PHOTOGRAPH ENLARGER ARE WEAK ON LEFT SIDE. PATIENT HAS LEFT FACIAL DROOP. THE PATIENTS LUNGS ARE CLEAR AND DEMINISHED. ABD IS SOFT WITH BSX4. PATIENT HAS +2 LLE, +1 LRE. PATIENT IS UP WITH ASSIST OF 1 STAFF AND GAIT BELT. UP IN W/C FOR MEALS. FALL AND SAFETY PROTOCOLS IN PLACE. DENIES PAIN. CONTINUES TO PROGRESS SLOWLY TOWARDS D/C GOALS. WILL CONTINUE TO MONITER
--- NOTE | 2020-02-03 12:42 | NUR ---
team meeting, reccommendation: will need dm teaching for dc. left hand and forarm edema. encourage use and elevation. re team and cont to work with therapy.
[2020-02-03 19:24] VITALS: BP 153/101
[2020-02-03 22:01] VITALS: BP 142/82
[2020-02-03 22:02] VITALS: BP 142/82
--- NOTE | 2020-02-03 23:56 | NUR ---
PT ALERT AND ORIENTED X 4. LEFT SIDED WEAKNESS AND LEFT FACIAL DROOP NOTED. BP 153/101 AT START OF SHIFT. HS MEDS GIVEN AND BP 142/82 AT 2200. 2+ EDEMA IN LUE, 1+ IN RUE. OPTIFOAM DRESSING C/D/I TO LEFT ARM. PT DENIES PAIN OR DISCOMFORT. BED ALARM ON FOR SAFETY. PT APPEARS TO BE SLEEPING ON HOURLY ROUNDS.
[2020-02-04 08:00] VITALS: BP 130/92
--- NOTE | 2020-02-04 12:07 | NUR ---
cm visited costa at bedside, cm cont to wear face mask and shield during visit. cm provided senior blue book for resources out side the hospital. will cont following as needed for dc needs.
--- NOTE | 2020-02-04 14:39 | NUR ---
ASSUMED CARES AT 0700. PT AWAKE, ALERT AND ORIENTED*2. DENIES PAIN. VITALS REMAIN STABLE. LEFT ARM AND LEG REMAIN FLACCID, PT DRAGGING LEFT FOOT WITH AMBULATION. CONTINUES TO HAVE LEFT-SIDED FACIAL DROOP. EDEMA REMAINS IN BUE, LEFT WORSE THAN RIGHT, EXTREMITIES ELEVATED. PT UP WITH 1 ASSIST, GB AND TRIPOD CANE AND TOLERARED WELL. Q1H VISUAL CHECKS. CALL LIGHT WITHIN REACH. FALL PRECAUTIONS IN PLACE.
[2020-02-04 19:10] VITALS: BP 171/109
[2020-02-05 00:06] VITALS: BP 168/92
--- NOTE | 2020-02-05 01:42 | NUR ---
UP TO TOILET WITH CONTACT GUARD ASSIST AND TRIPOD CANE. URGENT BUT CONTINENT LOOSE BM TIMES 3 SO FAR THIS SHIFT, COLACE AND MIRALAX DECLINED. TAKES PILLS EASILY ONE AT A TIME. BLOOD PRESSURE 171/109 PRIOR TO LOPRESSOR DOSE, 168/92 LATER, CATAPRES 0.1 MG OBTAINED AND GIVEN, TOLD PATIENT THAT WE WILL RECHECK THIS MORMING AT 0400 OR 0500. BLOOD SUGAR AT HS = 110, LANTUS 8 UNITS LANTUS SCHEDULED, WAS HELD AFTER DISCUSSION WITH VICENTE Mulligan CALCINER FEEDER WITH [facility].
[2020-02-05 04:46] VITALS: BP 139/93
--- NOTE | 2020-02-05 04:52 | NUR ---
CATAPRES 0.1 MG GIVEN A ONE-TIME ORDER BP NOW IS 139/93
--- NOTE | 2020-02-05 11:01 | NUR ---
Assumed care of patient at 0700. BP at 133/86. Blood sugar at 126. Facial droop. Is difficult to understand at times. Participating in therapies. Refused Miralax due to having loose stools. Weakness at left side. Remains on Fall precautions. Cooperative with asking for assistance. Slight edema to lower extremeties.
[2020-02-05 19:45] VITALS: BP 177/96
[2020-02-05 23:30] VITALS: BP 159/86
--- NOTE | 2020-02-06 02:56 | NUR ---
02-05-20 CARE TRANSFERRED 1899. 1940 PT AAOX4, B/P 177/96, P 90, RR EVEN AND NONLABORED ON RA, PT DENIES ANY PAIN, SKIN W/D. PT DEMONSTRATED MAKING A FIST AND RAISING ARM OVER HEAD, +2 EDEMA RIGHT HAND. PT REPORTS THE FEELING IN MY RIGHT ARM IS RETURN. PT PLEASANT AND COOPERATIVE THROUGHOUT NURSING ASSESSMENT. DURING MEDICATION ADMIN. PT HAD NO DIFFICULTIES SWALLOWING MEDICATION IN PUDDING. 2330 B/P 159/86, P 74, RR 16 EVEN AND NONLABORED ON RA. LATER ASSISTED PT TO BATHROOM AND PT HAD SMALL LOOSE STOOL. ZERO S/S OF ACUTE DISTRESS NOTE, PT WILL CONTINUE TO BE MONITOR PER 5NR PROTOCOL.
[2020-02-06 08:00] VITALS: BP 147/90
--- NOTE | 2020-02-06 09:23 | NUR ---
ASSUMED CARE AT 0700. PT HAD AN UNEVENTFUL NIGHT AND SLEPT WELL. ALERT AND ORIENTATED. DENIES ANY PAIN. HAS LEFT HAND EDEMA WHICH IS GETTING LESSER AND IMPROVING. PT HAS LEFT ARM WEAKNESS, ABLE TO RAISE L ARM AND ASSOCIATE MANAGER IS STILL WEAK. PT USES THE R HAND WALKER AND AMBULATES WITH ASSISTANCE. PARTICIPATING WITH THERAPY AND SLOWLY PROGRESSING TOWARDS GOAL. HAD COUPLE OF LOOSE STOOLS YESTERDAY AND HIS BOWEL REGIMEN HELD TODAY. NO OTHER CONCERNS, WILL CONT TO MONITOR.
[2020-02-06 19:44] VITALS: BP 169/111
[2020-02-07 00:01] VITALS: BP 160/101
--- NOTE | 2020-02-07 02:22 | NUR ---
ASSUMED CARES AT 1900. PT VERY SLEEPY, ORIENTED*4. DENIES PAIN. BP ELEVATED, BP LOWERING MEDS ADMINISTERED AND NIGHT COOK CHILI NOTIFIED, WILL CONTINUE TO MONITOR. ALL OTHER VITALS STABLE. PT CONTINUES TO HAVE LUE AND BLE EDEMA, EXTREMITIES ELEVATED. SKIN TEAR ON LEFT AC CLEANED, GILLES. PT VOIDING MULTIPLE TIMES IN THE NIGHT (LIGHT YELLOW CLEAR URINE), PT INCONTINENT OF BM*1, STATED THAT HE THOUGHT HE WAS PASSING GAS. UP WITH 1 MIN ASSIST, QUAD CANE AND GB AND TOLERATED WELL. Q1H VISUAL CHECKS. CALL LIGHT WITHIN REACH. FALL PRECAUTIONS IN PLACE.
[2020-02-07 05:46] VITALS: BP 146/89
[2020-02-07 07:00] VITALS: BP 138/92
--- NOTE | 2020-02-07 10:06 | NUR ---
ASSUMED CARE AT 0700. PATIENT IS ALERT AND ORIENTED X4. PATIENT HAS LEFT SIDED WEAKNESS. AND LEFT FACIAL DROOP. PATIENT IS UP WITH QUAD CANE. SOME SLURRED SPEECH. LUNGS ARE CLEAR AND DEMINISHED. ABD IS SOFT WITH BSX4. PATIENT C/O LOOSE STOOLS. LAXATIVES HELD. PATIENT HAS S.T. TO HIS LEFT AC AREA AND ITS OPEN TO AIR. PATIENT HAS EDEMA IN HIS UPPER EXTREMITY ON THE LEFT. ELEVATED ON PILLOW. FALL AND SAFETY PROTOCOLS ON PLACE. DENIES PAIN AT THIS TIME. WILL CONTINUE TO MONITER.
[2020-02-07 19:00] VITALS: BP 144/94
--- NOTE | 2020-02-08 00:13 | NUR ---
PT ALERT AND ORIENTED X 4. AMB TO BR WITH QUAD CANE AND ASSIST X 1. PT HAS HAD 2 SOFT STOOLS SO FAR TONIGHT. LAXATIVES HELD AT HS PER PT REQUEST. LEFT ARM EDEMA, ELEVATED ON PILLOWS. LEFT SIDED WEAKNESS NOTED. PT DENIES PAIN OR DISCOMFORT. BED ALARM ON FOR SAFETY. PT CHECKED ON HOURLY ROUNDS.
[2020-02-08 07:30] VITALS: BP 148/94
--- NOTE | 2020-02-08 12:30 | NUR ---
ASSUMED CARE OF PT AT 0700. PT IS A&OX4 AND VITAL SIGNS ARE STABLE. PT DENIES PAIN AND PARTICIPATED IN SCHEDULED THERAPIES. ACCU CHECKS ACHS. PERFORMED ADLS WITH SUPERVISION OR SET UP ASSISTANCE ONLY. +1 EDEMA NOTED TO BUE. FALL PRECAUTIONS IN PLACE AND NURSING WILL CONTINUE TO MONITOR.
[2020-02-08 19:12] VITALS: BP 177/105
[2020-02-08 21:52] VITALS: BP 136/89
--- NOTE | 2020-02-09 01:33 | NUR ---
BLOOD PRESSURE 177/105 AT 1910, SCHEDULED BID LOPRESSOR GIVEN, BLOOD PRESSURE AT 136/89 AT 2200. BLOOD SUGAR 155 WHICH IS THE HIGHEST CHECK IN PAST 24 HOURS. USING URINAL FOR 200 CC AT A TIME. PLEASANT AND TALKING WELL ON PHONE
[2020-02-09 08:12] VITALS: BP 118/73
--- NOTE | 2020-02-09 12:06 | NUR ---
Nutrition followup: pt intake declined from 75-100% to 25-100% of meals. Pt voices tiring of choices. Does make some changes with alternative menu but wants salads, etc which not allowed on mechanically altered diet. ST voiced pt may be close to upgrade soon. BG 99-155 remains well controlled on carb controlled diet and endocrinology managing. A1C 13.4 uncontrolled prior to admit. RD reviewed diet with pt today. See interdisciplinary log for details. No weight since 01/31. REC obtain new weight. Continue as low nutrition risk.
--- NOTE | 2020-02-09 14:27 | NUR ---
ASSUMED CARES AT 0700. PT AWAKE, ALERT AND ORIENTED*4. DENIES PAIN. VITALS REMAIN STABLE. CONTINUES TO HAVE RIGHT SIDED WEAKNESS. UP WITH 1 SBA, QUAD CANE AND GB AND TOLERATED WELL. PARTICIPATED WELL IN ALL THERAPIES AND CONTINUES TO PROGRESS TOWARDS DC GOALS.
[2020-02-09 19:10] VITALS: BP 154/95
[2020-02-09 19:55] VITALS: BP 150/90
--- NOTE | 2020-02-09 20:33 | NUR ---
PT REMEMBERED TO CALL FOR HIS MEDICATION ON TIME THIS EVENING.
[2020-02-09 22:00] VITALS: BP 148/87
--- NOTE | 2020-02-10 05:05 | NUR ---
PT ASSESSMENT COMPLETED AND VSS. MEDS GIVEN ORDERED AND WELL TOLERATED. FALL PRECAUTIONS IN PLACE. UP WITH ASST/GAIT/WALKER. LARGE SOFT BM THIS EVENING. PT VOIDING MODERATE AMOUNT PER URINAL. SLEEPING WELL. DENIES PAIN/N/SOA. WILL CONTINUE TO MONITOR FREQUENTLY. PT VERY MOTIVATED TO GET STRONGER.
[2020-02-10 06:02] VITALS: BP 138/83
[2020-02-10 08:00] VITALS: BP 112/71
[2020-02-10 10:19] LABS: HEMATOCRIT 43.6 % (42.0-52.0); HEMOGLOBIN 14.6 gm/dL (14.0-18.0); MCH 26.4 pg (26.0-34.0); MCHC 33.5 g/dL (28.0-37.0); MCV 78.9 fL (80.0-100.0); RBC 5.52 mil/uL (4.50-6.00); RDW 15.1 % (10.5-14.5); WBC 11.9 thou/uL (4.0-11.0)
[2020-02-10 10:30] LABS: CALCIUM 9.4 mg/dL (8.5-10.1); CREATININE 1.4 mg/dL (0.7-1.3); POTASSIUM 3.6 mmol/L (3.5-5.1)
--- NOTE | 2020-02-10 10:32 | NUR ---
ASSUMED CARE OF PT AT 0700. PT IS A&OX4 AND VITAL SIGNS ARE STABLE. ACCU CHECKS NOW BID PER ENDOCRINOLOGY. PT CALLED FOR MEDICATIONS APPROPRIATELY. DENIES PAIN AND PARTICIAPTED IN SCHEDULED THERAPIES. FALL PRECAUTIONS IN PLACE AND NURSING WILL CONTINUE TO MONITOR.
--- NOTE | 2020-02-10 13:09 | NUR ---
team meeting, reccommendation: labs with inc wbc, slight cough and clearing his throat. back on asa 81mg daily. diet mech soft chopped, thin liquid. needs to talk to med[employer]ist about medicaid and disability again. referral for ability kendal, and he is pat. re team with possible dc 02/23. possible will need fww.
[2020-02-10 15:13] LABS: URINE BLOOD NEGATIVE (Negative); URINE CLARITY CLEAR; URINE COLOR YELLOW; URINE GLUCOSE-RANDOM* NEGATIVE (Negative); URINE KETONES TRACE (Negative); URINE LEUKOCYTES-REFLEX NEGATIVE (Negative); URINE NITRITE-REFLEX NEGATIVE (Negative); URINE PROTEIN (DIPSTICK) 3+ (Negative); URINE SPECIFIC GRAVITY >= 1.030 (1.005-1.035)
[2020-02-10 15:15] LABS: ICTOTEST (BILI CONFIRMATORY) Negative (Negative); URINE BILIRUBIN NEGATIVE (Negative)
[2020-02-10 15:26] LABS: CASTS None Seen /LPF (None Seen); CRYSTALS None Seen /LPF (None Seen); SQUAMOUS 0-3 Few /LPF (0-3)
[2020-02-10 15:27] LABS: BACTERIA-REFLEX 1-9 Few /HPF (None Seen); URINE RBC None Seen /HPF (0-2); URINE WBC-REFLEX 0-5 Rare /HPF (0-5)
[2020-02-10 19:04] VITALS: BP 156/89
--- NOTE | 2020-02-10 22:15 | NUR ---
PATIENT AWARE OF DECREASE IN BLOOD SUGAR CHECKS TO BID SINCE GLUCOSE IS BETTER CONTROLLED, LOPRESSOR ON HOLD TO EVAL BLOOD PRESSURES WITHOUT IT, AND THAT HE IS NOW TAKING ASA 81 MG. I DID REMIND HIM OF NEED TO DECREASE CHOLESTEROL AND GAVE HIM ATORVASTIN TO HELP WITH THAT, IT'S THE ONLY PILL SCHEDULED FOR HS TODAY. LEFT ARM CONTINUES TO IMPROVE PROGRESS TOWARDS BEING ABLE TO SONOGRAPHY TECHNOLOGIST. USING URINAL. TALKING ON PHONE EARLY EVENING
--- NOTE | 2020-02-11 14:24 | NUR ---
FULL RANGE AFFECT NOTED DURING AM ASSESSMENT. ALERT-ORIENTED X4-DENIES C/O PAIN/DISCOMFORT. USES WALKER/GAIT BELT AND SBA X1 TO MOVE AROUND IN ROOM AND USE TOILET-TOLERATES ACTIVITY WELL
--- NOTE | 2020-02-11 15:00 | NUR ---
keyanna faxed rebecca referral to [facility], fax # [phone], phone # [phone]
[2020-02-11 19:06] VITALS: BP 148/105
--- NOTE | 2020-02-12 02:26 | NUR ---
ASKING FOR MED LAST NIGHT AND WE DISCUSSED TRYING TO GIVE ANOTHER MED (METFORMIN) AT THE TIME OF TAKING HIS THEORETICALLY 2 BIGGEST MEALS OF THE DAY NAMELY BREAKFAST AND DINNER. USING URINAL WITHOUT DIFFICULTY. PLEASANT
[2020-02-12 08:00] VITALS: BP 118/71
--- NOTE | 2020-02-12 18:06 | NUR ---
DENIES COMPLAINTS DURING AM ASSESSMENT AND THROUGHOUT SHIFT. COOPERATIVE WITH THERAPIES AND REQUESTS FROM NURSING STAFF. VOIDING PER URINAL OR WITH SBA X1 TO BATHROOM. APPETITE GOOD AND WILL TAKE PO FLUIDS WITH PROMPTING. BLOOD SUGARS WNL PRIOR TO BREAKFAST AND SUPPER.
[2020-02-12 19:50] VITALS: BP 149/94
--- NOTE | 2020-02-13 03:23 | NUR ---
Assumed p t's care this pm shift. Pt alert and oriented x4. Pleasant. Cooperative. VSS on RA. Meds given per emar. Denies pain. Pt shaved his [place] this shift. Up with walker and gait belt. Pt had BM this shift. Sleeping well so far. Fall precaution in place. Pt calls out appropriately. Call light within reach. Hourly roundings made. Will continue to monitor.
[2020-02-13 08:00] VITALS: BP 110/76
--- NOTE | 2020-02-13 13:49 | NUR ---
ASSUMED CARES AT 0700. PT AWAKE, ALERT AND ORIENTED*4. DENIES PAIN. VITALS REMAIN STABLE. PT CONTINUES TO HAVE LEFT SIDED WEAKNESS. UP WITH SBA, GB AND WALKER/ CANE AND TOLERATED WELL. PT FORGOT TO CALL FOR HIS MEDS EXPECTED. SPEECH THERAPIST NOTIFIED. Q1H VISUAL CHECKS. CALL LIGHT WITHIN REACH. FALL PRECAUTIONS IN PLACE.
--- NOTE | 2020-02-13 16:24 | H ---
[facility] [place] [address] [place] [address] HISTORY AND PHYSICAL Name: JULIO KANG Room #: 506-1 ADM IN M.R.#: [id number] Admission: 02/01/20 Attend Phys: Mino Hernandez MD Discharge: Date of : 65 Report #: [id number] THIS REPORT FOR: cc: NO FAMILY PHYSICIAN or PCP NO FAMILY PHYSICIAN or PCP Mino Hernandez MD ~ CC: Mino Hernandez NO PCP DATE OF SERVICE: 02/01/2020 PHYSICAL/POSTADMISSION PHYSICIAN EVALUATION HISTORY OF PRESENT ILLNESS: The patient is a 54-year-old -Romanian male left-handed, admitted originally on 01/26/2020 with left-sided acute weakness. MRI confirmed an acute right posterior and lateral frontal lobe infarct in the MCA distribution with hemorrhagic formation. The patient was allowed permissive hypertension. Troponin elevated. Non-ST elevation SC noted. The patient with uncontrolled type 2 diabetes mellitus. Hemoglobin A1c 13.4. Course was complicated by the followup CT scan showing the stroke with intracerebral hemorrhage that appears to be clearing. Recommendation was to hold off on starting antiplatelet for 2 weeks post his last date of bleeding. This was noted to be 01/30/[address] of the head. Neurology is deferring to us regarding consideration whether the patient should warrant DVT, anticoagulation based on his mobility status. PAST MEDICAL HISTORY: Prior medical history includes diabetes and hypertension. MEDICATIONS: Please see the full medication listing. ALLERGIES: No noted drug allergies. HABITS: No history of alcohol abuse. Nonsmoker. No history of drug abuse. SOCIAL HISTORY: Living at home with his sister who apparently works on during the day and there is also a niece that stays there and she works on as well. He was independent with ADLs and IADLs. 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 I am uncertain if the sister has steps. REVIEW OF SYSTEMS: No current complaints of chest pain, shortness of breath or abdominal discomfort. PHYSICAL EXAMINATION: GENERAL: A 54-year-old -Romanian male in no obvious distress. VITAL SIGNS: Last recorded temperature 97.5, pulse 74, respirations 16, blood pressure 153/75. The patient is alert. He is pleasant. [address] [address] HISTORY AND PHYSICAL Name: JULIO KANG Room #: 506-1 [facility] IN [facility].#: [id number] Admission: 02/01/20 Attend Phys: Mino Hernandez MD Discharge: Date of : 65 Report #: [id number] HEENT: Appeared to be benign. He appears to have a slight depressed left nasolabial fold, but his facies are reasonably symmetric. He is on a mechanical soft, thin liquid diet. EOMs appeared to be full. I could not detect any obvious visual field neglect to confrontation. CHEST: Sounded clear to auscultation. CARDIOVASCULAR: Regular rate and rhythm. ABDOMEN: Bowel sounds positive, nontender. GENITOURINARY AND RECTAL: Deferred. EXTREMITIES: He has functional range of motion. Strength of the right upper and right lower extremity is without focal weakness. Left upper extremity does reveal 1+ distal edema with hemiparesis. Tone is decreased. He is able to lift that left upper extremity. I would grade him at a 3 to 3+ with shoulder movement, elbow movement and hand movement. He is clumsy, has major decreased coordination, significant weakness, but does have some movement of that left arm, left leg appears a little better. I would grade him at more of 3+ to 4-. There is no calf swelling. No palpable cord. No clinical evidence for lower extremity deep venous thrombosis. Tone appeared decreased left upper extremity. Negative Anitha's. Lower extremity, no clonus. Tone probably a little decreased. Functionally, he has been improving and he has increased his mobility. Last ambulating 100 feet, handheld with the front-wheeled walker left hand and mold. He was sit to stand, min assist. ASSESSMENT: A 54-year-old male with the following problem list: 1. Acute right hemispheric cerebrovascular accident converted to post-TPA hemorrhage. 2. Left-sided hemiparesis, upper extremity greater than lower extremity. 3. Dysarthria that appears improved. 4. Dysphagia. He is on mechanical soft, thin. 5. Non-ST elevation myocardial infarction. 6. Uncontrolled type 2 diabetes mellitus. 7. Hypertension. PLAN: The patient has been admitted for acute in-hospital inpatient rehabilitation. Note neurology's question regarding whether the patient should receive DVT prophylaxis. In light of his recent hemorrhage and the fact that he is ambulating 100 feet and appears to be moved with moving his left lower extremity quite well, I think that the risk of anticoagulation outweighs the benefit and would recommend utilizing SCDs and continuing to increase his activity level. This was discussed with the hospitalist nurse practitioner who is in agreement. Note that the recommendation is for the patient to begin antiplatelet therapy for his stroke approximately 2 weeks from the date of bleeding. He is involved in the interdisciplinary acute inpatient rehabilitation program. Goal is to maximize his functional independence, so he can hopefully return back to his prior living situation. Risk of complications includes his multiple [facility] [address] [place] [address] HISTORY AND PHYSICAL Name: JULIO KANG Room #: 506-1 ADM IN .Ranjan.#: [id number] Admission: 02/01/20 Attend Phys: Mino Hernandez MD Discharge: Date of : 65 Report #: [id number] medical comorbidities. Measurable functional goals would be to improve his mobility and ADLs to hopefully be ambulatory with gait aids and to further improve his overall independence with swallowing and communication. Prognosis is reasonably good with estimated length of stay probably at least 10 days to 2 weeks. Potential barriers would include his multiple medical comorbidities and decreased functional status. The patient meets diagnostic criteria for an acute in-hospital inpatient rehabilitation stay. He meets the medical necessity criteria. He does have the tolerance for therapies and has appropriate discharge goals back to the home setting. <ELECTRONICALLY SIGNED> By: Mino Hernandez MD 02/13/20 1624 [id number] Mino Hernandez MD /nt
--- NOTE | 2020-02-13 16:24 | PLAN ---
[facility] [place] [address] REHAB UNIT PLAN OF CARE Name: JULIO KANG Room #: 506-1 ADM IN M.R.#: [id number] Admission: 02/01/20 Attend Phys: Mino Hernandez MD Discharge: Date of : 65 Report #: [id number] THIS REPORT FOR: //name// CC: Mino Hernandez NO PCP DATE OF SERVICE: 02/04/2020 PROGRESS NOTE/OVERALL PLAN OF CARE SUBJECTIVE: The patient is seen back today in followup. He is in no distress. Last recorded temperature 37, pulse 78, respirations 20, blood pressure 142/82. He continues with the left-sided hemiparesis. He is able to close and open his left hand, but has very little strength and has considerable clumsiness trying to hold a toothbrush. He is motivated and pleasant. Transfers are standby assistance and gait is 60 feet front-wheeled walker, min assist. No focal calf swelling. He has improved from mod assist 157 feet with a front-wheeled walker. He has gone up and down 4 steps, mod assist. ASSESSMENT: A 54-year-old male with the following problem list: 1. Acute right hemispheric cerebrovascular accident converted to post-TPA hemorrhage. 2. Left-sided hemiparesis, upper extremity greater than lower extremity. 3. Dysarthria. 4. Dysphagia. 5. Non-ST elevation myocardial infarction. 6. Uncontrolled type 2 diabetes mellitus. 7. Hypertension. PLAN: The overall plan of care is based on the preadmission screen and includes the followin. Estimated length of stay probably at least 2 weeks. 2. Medical prognosis is reasonably good. 3. Anticipated interventions include the interdisciplinary acute inpatient rehabilitation program. 4. Anticipated functional outcomes would be for the patient to become modified independent with transfers, mobility, ADLs to improve as far as swallowing issues and communication, so that he can return back to the home setting. 5. Discharge destination would be back to the home setting. He is planning on going to stay with his sister. 6. Expected therapy by discipline includes PT, OT and speech 1 hour per day each five days a week throughout the duration of the acute inpatient rehabilitation stay. ADDENDUM: The patient's prognosis for significant practical improvement within a reasonable period of time appears good. Given the patient's complex medical [facility] [address] [place] [address] REHAB UNIT PLAN OF CARE Name: JULIO KANG Room #: 506-[address] [facility].#: [id number] Admission: 02/01/20 Attend Phys: Mino Hernandez MD Discharge: Date of : 65 Report #: [id number] condition and risk of further medical complications, rehabilitation services could not be safely provided at a lower level of care such as a half-way facility. <ELECTRONICALLY SIGNED> By: Mino Hernandez MD 02/13/20 1624 [id number] 2049 Mino Hernandez MD /MARIELENA
[2020-02-13 19:41] VITALS: BP 149/95
--- NOTE | 2020-02-13 20:20 | NUR ---
ASKED FOR HS MEDS
--- NOTE | 2020-02-13 21:25 | NUR ---
ASSUMED CARE AT APPROX 1910, REPORT RECEIVED. PT ALERT AND APPOPRIATE, TALKATIVE. NOTED SLIGHT EDEMA TO LUE, ELEVATED ON A PILLOW. PT CALLED APPROPRIATELY FOR HS MEDS AHEAD OF TIME. CARE RELINQUISHED TO Rena DUMONT A LITTLE OVER AN HOUR LATER, AND HS MEDS GIVEN AFTER PT CALLED. PT VERBALIZED FAMILIARITY WITH MED NAMES, BUT WAS INCORRECT REGARDING REASON FOR EACH MED. WILL NEED REINFORCEMENT OF MED PURPOSES AND SIDE EFFECTS PRIOR TO DC.
[2020-02-14 08:00] VITALS: BP 129/82
--- NOTE | 2020-02-14 10:37 | NUR ---
ASSUMED CARE AT 0700. PATIENT IS ALERT AND ORIENTEDX4. PATIENT HAS LEFT SIDED WEAKNESS AND MILD SLURRED SPEECH. PATIENT IS UP WITH WALKER AND GAIT BELT TO BATHROOM. PATIENT USES URINAL TO VOID BLAS COLORED URINE. PATIENT HAS LEFT KNEE BRACE. PATIENT IS TO CALL FOR MEDS. FALL AND SAFETY PROTOCOLS IN PLACE. DENIES PAIN. CONTINUES TO PROGRESS SLOWLY TOWARDS D/C GOALS. WILL CONTINUE TO MONITER.
[2020-02-14 19:42] VITALS: BP 192/101
[2020-02-14 22:11] VITALS: BP 140/81
--- NOTE | 2020-02-15 01:01 | NUR ---
PT ASSESSMENT COMPLETED AND VSS. MEDS GIVEN ORDERED AND WELL TOLERATED. PT BP ELEVATED AT THE BEGINNING OF SHIFT AFTER TALKING TO HIS GIRLFRIEND. GAVE PT SCHEDULED BP MEDICATION AND RECHECKED BP. MUCH IMPROVED AND WITHIN LIMITS SET BY THE DR. PT VOIDING LARGE AMOUNT OF YELLOW URINE INDEPENDANTLY USING URINAL. PT ABLE TO LIFT HIS LEFT ARM UP TONIGHT. HE SAID THAT HE IS HAPPY THAT HIS LEFT ARM IS GETTING STRONGER. SLEEPING WELL. WILL CONTINUE TO MONITOR FREQUENTLY.
[2020-02-15 08:00] VITALS: BP 140/92
--- NOTE | 2020-02-15 14:16 | NUR ---
ASSUMED CARES AT 0700. PT AWAKE, ALERT AND ORIENTED*4. DENIES PAIN. VITALS REMAIN STABLE. PT CONTINUES TO HAVE LEFT SIDED WEAKNESS, ABLE TO GRAB LARGE THINGS WITH HIS LEFT HAND. HAS COMPLETE ROM ON LUE. UP WITH 1 SBA -CG AND TOLERATED WELL. Q1H VISUAL CHECKS. CALL LIGHT WITHIN REACH
[2020-02-15 20:00] VITALS: BP 145/95
--- NOTE | 2020-02-15 20:20 | HC ---
[facility] [place] [address] [place] [address] CONSULTATION Name: JULIO KANG Room #: 506-1 ADM IN M.R.#: [id number] Admission: 02/01/20 Attend Phys: Mino Hernandez MD Discharge: Date of : 65 Report #: [id number] THIS REPORT FOR: cc: NO FAMILY PHYSICIAN or PCP NO FAMILY PHYSICIAN or PCP Estevan Christianson PhD ~ NEUROBEHAVIORAL STATUS EXAM CLINICAL PRESENTATION: The patient is a 54-year-old male admitted to the [facility] for a comprehensive inpatient rehabilitation program to improve functional mobility, activities of daily living and self-care and mental status secondary to an acute right cerebrovascular accident. The patient was initially admitted on 01/26/2020 with left-sided weakness. An MRI revealed an acute right posterior and lateral frontal lobe infarct in the MCA distribution with hemorrhagic formation. The patient was allowed permissive hypertension. A non-ST elevation MN was identified. The patient carries a diagnosis of uncontrolled type 2 diabetes mellitus and a hemoglobin A1c of 13.4 indicating uncontrolled management of diabetes. His assessment on admission to the rehab unit is an acute right hemisphere CVA converted to post-TPA hemorrhage, left-sided hemiparesis, upper extremity greater than lower, dysarthria is improving, dysphagia, non-ST elevation MN, uncontrolled type 2 diabetes mellitus and hypertension. A complete description of his medical condition and history along with medications can be found in his medical record. Neuropsychological consultation was requested to provide assistance in the assessment of cognitive and emotional status and provide recommendations and services. 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 He reports having no children. His family includes one sister and 2 brothers. He is a high school graduate. He does not report a history of treatment for anxiety or depression. There is also no reported alcohol abuse. TECHNIQUES UTILIZED: Clinical interview, review of medical records, staff consultation and behavioral observation, mini mental status exam 2 standard version, clock drawing. EXAMINATION FINDINGS: The patient reports difficulty with sleep, appetite and anxiety. He reported periods of tearfulness and increased emotional reactivity during his early stroke presentation. Currently, he reports taking longer to do things and having difficulty with memory. Subtle variability in vocabulary is also reported. His performance on the MMSE 2 brief version is within normal limits with a raw [facility] [address] [place] [address] CONSULTATION Name: JULIO KANG Room #: 506-1 [facility] IN .R.#: [id number] Admission: 02/01/20 Attend Phys: Mino Hernandez MD Discharge: Date of : 65 Report #: [id number] score of 14/16. He was 3/3 for initial registration, 5/5 for orientation to time and place and 1/3 for immediate recall of 3 items after a brief time delay and distraction. Performance on the MMSE 2 standard version was 22 of 30. He has any increase delay with evidence of some impulsivity noted during serial 7's. He had difficulty with copying a simple geometric design. Clock drawing was also poor suggesting both impaired visual spatial construction as well as hand placement. The patient is left hand dominant and the stroke occurred in the left hemisphere. Visual spatial constructive deficits are noted suggesting reversed dominance for speech. He also indicates he may have had attention deficit disorder as a child. 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 Possible attention deficit hyperactivity disorder -- per history. RECOMMENDATIONS: The patient will benefit from a more comprehensive neuropsychological evaluation upon his discharge. His deficits appear to suggest visual spatial/perceptual impairment rather than verbally mediated deficits as a result of his stroke. Right hemisphere deficits may also include impulsivity, decreased awareness of deficits and and emotional lability. Redirection of attention and distraction can be of help in managing emotional lability. Thank you very much for allowing me to provide the consultation on this patient. <ELECTRONICALLY SIGNED> By: Estevan Christianson, PhD 02/15/202019 1819 [id number] Estevan Christianson, PhD /nt
--- NOTE | 2020-02-16 04:13 | NUR ---
STATES PLAN TO ASK FOR MEDS AT 0800 AND 1999, DID NOT AT HS, BLOOD PRESSURE MED AND ATORVASTATIN GIVEN WITH EXPLANATION OF THEIR NEED FOR HIM TO TAKE. PLEASANT, USING URINAL OVERNIGHT
[2020-02-16 07:30] VITALS: BP 124/81
--- NOTE | 2020-02-16 12:17 | NUR ---
Nutrition followup: pt continues on rehab unit. Intake 50-100% of meals past several days. ST hopeful for diet upgrade this week. Continues on mechanically altered chopped solids. BG is well controlled with endocrinology managing and new medication regimen. Still no new weight since 01/31. Request new weight. Pt voiced no diet related questions in followup to education last week. Continue as low nutrition risk.
--- NOTE | 2020-02-16 12:21 | NUR ---
Nutrition: REC new weight. No weight since 01/31.
--- NOTE | 2020-02-16 14:22 | NUR ---
ASSUMED CARES AT 0700. PT AWAKE, ALERT AND ORIENTED *4. DENIES PAIN. VITALS REMAIN STABLE. CONTINUES TO HAVE LEFT SIDED WEAKNESS. UP WITH SBA, GB AND WALKER. CONTINUES TO PROGRESS TOWARDS DC GOALS. Q1H VISUAL CHECKS. CALL LIGHT WITHIN REACH. FALL PRECAUTIONS IN PLACE
--- NOTE | 2020-02-16 17:00 | NUR ---
PATIENT CALLED FOR HIS 0 METFORMIN BY NAME, AND WAS ABLE TO VERBALIZE WHAT IT WAS FOR, WELL THE OTHER MEDS AND THEIR PURPOSE THAT HE WILL TAKE LATER THIS EVENING.
[2020-02-16 19:24] VITALS: BP 147/101
--- NOTE | 2020-02-17 02:12 | NUR ---
PATIENT AWARE THAT HE HAD FORGOTTEN TO ASK FOR HIS PILLS "AGAIN" WHEN SMALL HANDFUL OF MEDS WAS BROUGHT IN. UP TO TOILET WITH STANDBY ASSIST AND USING URINAL AT BEDSIDE SINCE THEN
[2020-02-17 07:30] VITALS: BP 123/80
--- NOTE | 2020-02-17 13:43 | NUR ---
team meeting, reccomendation: diet mech soft with thin liquids. calling for medications. sister training with therapy and nurse on dm and with costa. family will need to bring in dm meter to train with. no driving. rebecca ability referral already sent. vouched for medication and dme cane vs fww. cont with dc on .
[2020-02-17 19:45] VITALS: BP 153/94
--- NOTE | 2020-02-17 20:04 | NUR ---
ASSUMED CARE OF PT AT 0700. PT IS A&OX4 AND VITAL SIGNS ARE STABLE. PT DENIES PAIN AND PARTICIPATED IN SCHEDULED THERAPIES. PT CALLS APPROPRIATELY FOR MEDICATIONS. ACCU CHECKS BID, MANAGED WITH PO MEDICATIONS. PT RECEPTIVE TO DIABETES EDUCATION. NURSING PROVIDED PT WITH EDUCATION ABOUT DIET MANAGEMENT IN DIABETES AND ABOUT PO MEDICATIONS. FALL PRECAUTIONS IN PLACE AND NURSING WILL CONTINUE TO MONITOR.
--- NOTE | 2020-02-17 23:27 | NUR ---
PT ALERT AND ORIENTED X 4. AMB TO BR WITH CANE AND ASSIST X 1 WITHOUT DIFFICULTY. LEFT SIDED WEAKNESS NOTED. PT DENIES PAIN OR DISCOMFORT. PT CALLED FOR HS MEDS APPROPRIATELY. BED ALARM ON FOR SAFETY. PT APPEARS TO BE SLEEPING ON HOURLY ROUNDS.
--- NOTE | 2020-02-18 08:14 | NUR ---
ASSUMED CARE AT 0700. PATIENT IS ALERT AND ORIENTED X4. PATIENT HAS LEFT SIDED WEAKNESS THAT IS IMPROVING. SLURRED SPEECH IS BETTER. LUNGS ARE CLEAR. ABD IS SOFT WITH BSX4. PATIENT IS VOIDING BLAS COLORED URINE WITH URINAL. UP WITH ONE WITH GAIT BELT AND WALKER. FALL AND SAFETY PROTOCOLS IN PLACE. DENIES PAIN AT THIS TIME. CONTINUES TO PROGRESS TOWARDS D/C GOALS. WILL CONTINUE TO MONITER.
--- NOTE | 2020-02-18 13:46 | NUR ---
cm visit with sister german via phone call, she agrees with dcp. " yes i can get him dm supplies kit at [facility] and bring it in. i can work with therapy on 02/23/2020 at 1300"./german. cm passed on information to bedside nurse to updates.
[2020-02-18 19:35] VITALS: BP 154/96
--- NOTE | 2020-02-19 01:42 | NUR ---
TURNING SELF IN BED, NOTICED THAT IT WAS PAST TIME FOR PM MEDS AND HAD FALLEN ASLEEP. I SUGGESTED HE GO AHEAD AND ASK FOR MEDS WHILE HE'S IN THE HOSPITAL IF HIS EVENING VITALS INCLUDE A HIGH BP (HIS WAS 156/94 AT 1930) HE KNOWS HE IS FORGETTING. USING URINAL AT NIGHT
[2020-02-19 05:47] LABS: CALCIUM 8.6 mg/dL (8.5-10.1); MAGNESIUM 1.4 mg/dL (1.8-2.4); POTASSIUM 4.1 mmol/L (3.5-5.1)
[2020-02-19 05:48] LABS: ABSOLUTE NEUTROPHILS 5.6 thou/uL (1.4-8.2); BASOPHILS 0.6 % (0.0-2.0); EOSINOPHILS 3.8 % (0.0-3.0); HEMATOCRIT 39.7 % (42.0-52.0); HEMOGLOBIN 13.4 gm/dL (14.0-18.0); LYMPHOCYTES 22.4 % (24.0-44.0); MCH 26.6 pg (26.0-34.0); MCHC 33.7 g/dL (28.0-37.0); MCV 78.9 fL (80.0-100.0); PLATELET COUNT 263 thou/uL (150-400); POLYS 66.2 % (36.0-66.0); RBC 5.03 mil/uL (4.50-6.00); RDW 15.3 % (10.5-14.5); WBC 8.5 thou/uL (4.0-11.0)
[2020-02-19 08:00] VITALS: BP 105/69
--- NOTE | 2020-02-19 12:38 | NUR ---
PATIENT IS ALERT, AND ORIENTED X 3-4 ABLE TO VOICE NEED. LUNGS CLEAR TO AUSCULTATION IN ALL LOBE. BS+X4, ABD SOFT, NON-TENDER TO TOUCH. PATIENT TOOK ALL MEDICATION WHOLE WITHOUT DIFFICULTY. PATIENT IS EATING MEALS, AND DRINKING FLUID WELL. PATIENT WORKING WITH THERAPY, TOLERATING THERAPY WELL. CT-SCAN OF HEAD COMPLETED, RESULT IN CHART. PATIENT DENIES HAVING PHYSICAL PAIN AT THIS TIME. NO SIGN OF ACUTE DISTRESS NOTED AT THIS TIME, CALL LIGHT IN REACH, WILL MONITOR FOR SAFETY.
[2020-02-19 19:22] VITALS: BP 157/107
--- NOTE | 2020-02-20 01:55 | NUR ---
assumed care approx 1900 evening 02/18. pt alert and oriented x4, pleasant and cooperative. pt in good mood assisted to bathroom with cane to have bm on toilet. pt took hs meds with water tolerating well. pt appears to be sleeping soundly with hourly rounding checks. bed alarm on and call light in reach. will continue to monitor.
[2020-02-20 08:00] VITALS: BP 109/70
--- NOTE | 2020-02-20 13:34 | NUR ---
ok per cm supervisor wound to vouch for medication and cane or walker for dc. will cont following as needed for dc needs on .
--- NOTE | 2020-02-20 15:52 | NUR ---
ASSUMED CARES AT 0700. PT AWAKE, ALERT AND ORIENTED*4. DENIES PAIN. VITALS REMAIN STABLE. PT CONTINUES TO HAVE LEFT SIDED WEAKNESS AND FACIAL NUMBNESS, CONTINUES TO PARTICIPATE AND TOLERATE THERAPIES WELL. UP WITH 1 MIN-SBA, GB AND WALKER AND TOLERATED WELL. Q1H VISUAL CHECKS. CALL LIGHT WITHIN REACH. FALL PRECAUTIONS IN PLACE
[2020-02-20 22:05] VITALS: BP 158/104
[2020-02-20 22:06] VITALS: BP 162/105
[2020-02-20 22:07] VITALS: BP 147/91
--- NOTE | 2020-02-21 04:03 | NUR ---
PT ALERT AND ORIENTED X4, PLEASANT AND COOPERATIVE. PT UP TO BATHROOM WITH CANE WITH STANDBY ASSIST. PT TOOK HS MEDS WITH WATER TOLERATING WELL. PT APPEARS TO BE SLEEPING SOUNDLY WITH HOURLY ROUNDING CHECKS. BED ALARM ON AND CALL LIGHT IN REACH. WILL CONTINUE TO MONITOR.
[2020-02-21 07:15] VITALS: BP 140/85
[2020-02-21 19:23] VITALS: BP 154/97
--- NOTE | 2020-02-21 20:12 | NUR ---
ASSUMED CARE OF PT AT 0700. PT IS A&OX4. B/P ELEVATED IN AM AND NEW MEDICATIONS ADMINISTERED. B/P WNL ON RECHECK. PT DENIES PAIN AND PARTICIPATED IN SCHEDULED THERAPIES. ACCU CHECKS BID. PT CALLS APPROPRIATELY FOR MEDICATIONS AND ASSISTANCE. FALL PRECAUTIONS IN PLACE AND NURSING WILL CONTINUE TO MONITOR.
--- NOTE | 2020-02-22 02:49 | NUR ---
PT ASSESSMENT COMPLETED AND VSS. MEDS GIVEN ORDERED AND WELL TOLERATED. FALL PRECAUTIONS IN PLACE. UP TO THE BATHROOM WITH ASST/GAIT/WALKER. STEADY. PT DENIES PAIN/N/SOA. SLEEPING WELL. WILL CONTINUE TO MONITOR FREQUENTLY.
[2020-02-22 07:20] VITALS: BP 136/85
--- NOTE | 2020-02-22 14:55 | NUR ---
ASSUMED CARES AT 0700. PT AWAKE, ALERT AND ORIENTED *4. DENIES PAIN. VITALS REMAIN STABLE. PT C/O ABDOMINAL DISCOMFORT BEFORE BREAKFAST THAT RESOLVED AFTER HE ATE, WILL CONTINUE TO MONITOR. CONTINUES TO HAVE LEFT SIDED WEAKNESS. UP WITH 1 SBA, GB AND CANE/ WALKER AND TOLERATED WELL. AMBULATED WITH NURSING AROUND THE UNIT. Q1H VISUAL CHECKS. CALL LIGHT WITHIN REACH. FALL PRECAUTIONS IN PLACE.
[2020-02-22 19:35] VITALS: BP 140/83
--- NOTE | 2020-02-23 02:13 | NUR ---
ASSESSMENT COMPLETED.PT WAS ABLE TO CALL FOR HS MEDS ON TIME. HE IS ALERT AND ORIENTED. WALKS WITH CANE TO THE BATHROOM,REQUIRES SBA. HE IS CONTINENT. NO SOA OR COUGH NOTED.LEFT SIDED WEAKNESS.PT SWALLOWS MEDS OKAY, FOLLOWS PREC INDICATED.DENIES PAIN. ATE SOME BANANAS AT BEDTIME.HE IS NICE AND COOPERATIVE. NO CONCERNS AT THIS TIME. FALL PREC IN PLACE, CALL LIGHT WITHIN REACH.
[2020-02-23 05:58] LABS: ALBUMIN 2.9 g/dL (3.4-5.0); CREATININE 1.2 mg/dL (0.7-1.3); PHOSPHORUS 4.9 mg/dL (2.5-4.9); POTASSIUM 3.8 mmol/L (3.5-5.1)
[2020-02-23 08:08] VITALS: BP 116/67
[2020-02-23] MEDS ORDERED: METFORMIN HCL500 MG PO (08:10)
[2020-02-23] MEDS ORDERED: LISINOPRIL40 MG PO (08:10)
[2020-02-23] MEDS ORDERED: LIPITOR40 MG PO (08:10)
[2020-02-23] MEDS ORDERED: BAYER CHEWABLE81 MG PO (08:10)
[2020-02-23] MEDS ORDERED: VITAMIN D3125 MC1 PO (08:10)
[2020-02-23] MEDS ORDERED: NORVASC10 MG PO (08:10)
[2020-02-23] MEDS ORDERED: GLIPIZIDE ER2.5 MG PO (08:10)
--- NOTE | 2020-02-23 12:21 | NUR ---
Nutrition followup: pt continues to eat very well on carb controlled diet. No longer requires the mechanically altered diet which pleases him. No weight since 01/31. Continue to request. 02/21 BM. BG controlled. Labs/meds reviewed. Low nutrition risk.
--- NOTE | 2020-02-23 14:35 | NUR ---
ASSUMED PT CARE THIS AM. PT VSS, A&OX4. PT HAS NO COMPLAINTS OF PAIN. CALLS APPROPRIATELY WHEN NEEDED. PT DID NOT CALL FOR MEDS WHEN NEEDED, HAD TO BRING TO OT AND EDUCATE ON IMPORTANCE OF CALLING FOR THEM. TAKES MEDS WHOLE, WITHOUT COMPLAINT. HYDRATION PROMOTED.
--- NOTE | 2020-02-23 20:03 | NUR ---
CALLING FOR MEDS ZG=[phone]
[2020-02-23 20:15] VITALS: BP 160/88
--- NOTE | 2020-02-24 01:48 | NUR ---
GETTING STRONGER AND LOOKING FORWARD TO GOING HOME TODAY. STATES EXPERIENCE WITH CHECKING BLOOD GLUCOSE AND WILL DO SO WHEN HE GOES HOME. USING URINAL, BUT CAN WALK TO TOILET WITH CANE AND STANDBY ASSIST
[2020-02-24 07:00] VITALS: BP 136/85
--- NOTE | 2020-02-24 10:10 | NUR ---
keyanna dep vouched for his cane and provider plus delivered it this morning. [facility]anna dep vouched for medication $ 69.63. spoke with ability rebecca waiting list to see if he as on it, "yes he is on it and will not be this year or possible next year either, filled up"/[facility]. medical disability is pending with medical review team. he is going to be staying with his sister or brother for now.
--- NOTE | 2020-02-24 10:11 | NUR ---
ASSUMED CARES AT 0700. PT AWAKE, ALERT AND ORIENTED *4. DENIES PAIN. VITALS REMAIN STABLE. CONTINUES TO HAVE LEFT SIDED WEAKNESS, UP WITH 1 SBA, GB AND WALKER AND TOLERATED WELL. PT TO DC TO HOME WITH HOMEHEALTH THIS AM, PT EDUCATION AND TEACHING TO BE COMPLETED AT THE BEDSIDE WITH PATIENT AND SISTER. Q1H VISUAL CHECKS. CALL LIGHT WITHIN REACH. FALL PRECAUTIONS IN PLACE
[2020-02-24 10:23] VITALS: BP 136/85
== END 2020-02-24 11:06 | disposition home health service (06) | DRG 56 ==
PROVIDERS: Hospitalist; Internal Medicine Hematology & Oncology; Nurse Practitioner; Nurse Practitioner Family; ADMIT Physical Medicine & Rehabilitation; ATTEND Physical Medicine & Rehabilitation
DX: I69.354 Hemiplegia and hemiparesis following cerebral infarction affecting left non-dominant side (principal); I63.9 Cerebral infarction, unspecified; I21.4 Non-ST elevation (NSTEMI) myocardial infarction; I61.9 Nontraumatic intracerebral hemorrhage, unspecified; N17.9 Acute kidney failure, unspecified; R47.1 Dysarthria and anarthria; R13.10 Dysphagia, unspecified; E11.9 Type 2 diabetes mellitus without complications; I10 Essential (primary) hypertension; K59.00 Constipation, unspecified; I16.0 Hypertensive urgency; E66.01 Morbid (severe) obesity due to excess calories; F01.50 Vascular dementia, unspecified severity, without behavioral disturbance, psychotic disturbance, mood disturbance, and anxiety; T45.615A Adverse effect of thrombolytic drugs, initial encounter; E78.5 Hyperlipidemia, unspecified; Z79.84 Long term (current) use of oral hypoglycemic drugs; Z79.899 Other long term (current) drug therapy; Z68.27 Body mass index [BMI] 27.0-27.9, adult; Y92.89 Other specified places as the place of occurrence of the external cause; Z23 Encounter for immunization
CPT/HCPCS: 10112